=== PATIENT | male | born 1985 | race Caucasian/White ===

== ENCOUNTER 2025-10-29 17:57 | Emergency (ER) | payer MEDICAID ==
[2025-10-29] MEDS ORDERED: Sodium Chloride 0.9% 2.5 ML Syringe FLUSH PRN (18:20)
[2025-10-29] MEDS ORDERED: Sodium Chloride 0.9% 10 ML Syringe FLUSH PRN (18:20)
[2025-10-29 18:37] LABS: BASOPHILS ABSOLUTE AUTO 0.01 K/uL (0.00-0.20); BASOPHILS PERCENT AUTO 0.1 % (0.0-1.0); EOSINOPHILS ABSOLUTE AUTO 0.00 K/uL (0.00-0.45); EOSINOPHILS PERCENT AUTO 0.0 % (0.0-6.0); IMMATURE GRAN ABSOLUTE AUTO 0.04 K/uL (0.00-0.05); IMMATURE GRAN PERCENT AUTO 0.5 % (0.0-0.4); LYMPHOCYTES ABSOLUTE AUTO 0.96 K/uL (1.00-4.80); LYMPHOCYTES PERCENT AUTO 11.7 % (24.0-44.0); MEAN PLATELET VOLUME 10.1 fL (9.4-12.4); MONOCYTES ABSOLUTE AUTO 0.93 K/uL (0.00-0.80); MONOCYTES PERCENT AUTO 11.4 % (0.0-8.0); NEUTROPHILS ABSOLUTE AUTO 6.24 K/uL (1.80-7.70); NEUTROPHILS PERCENT AUTO 76.3 % (41.0-71.0); NRBC ABSOLUTE 0.00 K/uL (0.00-0.02); NRBC PERCENT 0.0 /100WBC (0.0-0.2); PLATELET COUNT,PLT 265 K/uL (150-400); RED BLOOD CELL COUNT 4.36 M/uL (4.52-5.90); WHITE BLOOD CELL COUNT,WBC 8.18 K/uL (3.9-11.3)
[2025-10-29] MEDS: Ketorolac 30 MG/ML SDV IVPUSH ONE (18:39)
[2025-10-29 18:50] LABS: INR 1.07 (0.86-1.11); PTT,PARTIAL THROMBOPLSTIN TIME 27.0 SEC (23.9-30.7)
[2025-10-29 19:07] LABS: A/G RATIO 0.6 (0.9-1.6); ALANINE AMINOTRANSFERASE,ALT 162.0 IU/L (14-63); ASPARTATE AMNIOTRANSFERASE,AST 88.0 IU/L (15-37); BILIRUBIN TOTAL 0.9 mg/dL (0.2-1.0); BLOOD UREA NITROGEN,BUN 13.0 mg/dL (7.0-18.0); CARBON DIOXIDE,CO2 27.2 mmol/L (21.0-32.0); CHLORIDE,CL 96.0 mmol/L (98-107); CREATININE 1.0 mg/dL (0.8-1.3); EST CRCL DRUG DOSING (CG) 102.49 mL/min; ESTIMATED GFR 96.0 mL/min (>60); GLUCOSE RANDOM 142.0 mg/dL (74-106); POTASSIUM,K 4.3 mmol/L (3.5-5.1); PROTEIN TOTAL,TP 7.2 g/dL (6.4-8.2); SODIUM,NA 134.0 mmol/L (136-148)
[2025-10-29 19:09] LABS: LACTIC ACID 1.7 mmol/L (0.4-2.0)
[2025-10-29] MEDS: VANCOmycin 2 GM/400 ML 2 GM in Premix Bag 1 BAG IV ONE (19:21)
[2025-10-29] MEDS: Ondansetron 4 MG/2 ML SDV IVPUSH ONE (19:27)
[2025-10-29] MEDS: Ketorolac 30 MG/ML SDV IVPUSH STA (20:26)
[2025-10-29 20:27] LABS: APPEARANCE,URINE CLEAR; GLUCOSE,URINE NEGATIVE (NEGATIVE); OCCULT BLOOD,URINE NEGATIVE (NEGATIVE)
[2025-10-29] MEDS: Iopamidol 755 MG/ML 500 ML Multipack Bottle IVPUSH ONE (21:26)
[2025-10-29] MEDS ORDERED: Amoxicillin/Clavulanate K 875-125 MG Tab PO ONE (22:20)
== END 2025-10-29 22:42 | disposition home or self-care (01) ==
LOC: MW.ED 17:57
DX: J01.90 Acute sinusitis, unspecified (principal); E86.0 Dehydration; Z79.899 Other long term (current) drug therapy
CPT/HCPCS: 36415; 70450; 70460; 70487; 71250; 80053; 81003; 83605; 83735; 85025; 85610; 85730; 87040; 87086; 87428; 87651; 93005; 96365; 96366; 96367; 96375; 96376; 99284; A9270; J1885; J2405; J2543; J3375; J7030; Q9967; 87077; 87154; 87186; 93010

== ENCOUNTER 2025-11-02 11:04 | Emergency (ER) | payer MEDICAID ==
[2025-11-02] MEDS ORDERED: Sodium Chloride 0.9% 10 ML Syringe FLUSH PRN (11:13)
[2025-11-02] MEDS ORDERED: Sodium Chloride 0.9% 2.5 ML Syringe FLUSH PRN (11:13)
[2025-11-02 13:14] LABS: BASOPHILS ABSOLUTE AUTO 0.01 K/uL (0.00-0.20); BASOPHILS PERCENT AUTO 0.2 % (0.0-1.0); EOSINOPHILS ABSOLUTE AUTO 0.02 K/uL (0.00-0.45); EOSINOPHILS PERCENT AUTO 0.4 % (0.0-6.0); IMMATURE GRAN ABSOLUTE AUTO 0.03 K/uL (0.00-0.05); IMMATURE GRAN PERCENT AUTO 0.6 % (0.0-0.4); LYMPHOCYTES ABSOLUTE AUTO 1.69 K/uL (1.00-4.80); LYMPHOCYTES PERCENT AUTO 32.4 % (24.0-44.0); MEAN PLATELET VOLUME 10.0 fL (9.4-12.4); MONOCYTES ABSOLUTE AUTO 0.59 K/uL (0.00-0.80); MONOCYTES PERCENT AUTO 11.3 % (0.0-8.0); NEUTROPHILS ABSOLUTE AUTO 2.87 K/uL (1.80-7.70); NEUTROPHILS PERCENT AUTO 55.1 % (41.0-71.0); NRBC ABSOLUTE 0.00 K/uL (0.00-0.02); NRBC PERCENT 0.0 /100WBC (0.0-0.2); PLATELET COUNT,PLT 405 K/uL (150-400); RED BLOOD CELL COUNT 3.97 M/uL (4.52-5.90); WHITE BLOOD CELL COUNT,WBC 5.21 K/uL (3.9-11.3)
[2025-11-02 13:26] LABS: INR 0.98 (0.86-1.11); PTT,PARTIAL THROMBOPLSTIN TIME 21.7 SEC (23.9-30.7)
[2025-11-02 13:34] LABS: LACTIC ACID 1.2 mmol/L (0.4-2.0)
[2025-11-02 13:38] LABS: A/G RATIO 0.6 (0.9-1.6); ALANINE AMINOTRANSFERASE,ALT 160.0 IU/L (14-63); ASPARTATE AMNIOTRANSFERASE,AST 104.0 IU/L (15-37); BILIRUBIN TOTAL 0.7 mg/dL (0.2-1.0); BLOOD UREA NITROGEN,BUN 10.0 mg/dL (7.0-18.0); CARBON DIOXIDE,CO2 30.1 mmol/L (21.0-32.0); CHLORIDE,CL 106.0 mmol/L (98-107); CREATINE KINASE,CK 61.0 U/L (26-308); CREATININE 0.7 mg/dL (0.8-1.3); EST CRCL DRUG DOSING (CG) 146.42 mL/min; GLUCOSE RANDOM 90.0 mg/dL (74-106); POTASSIUM,K 4.3 mmol/L (3.5-5.1); PRO B-TYPE NATRIUR PEPT,BNPPRO 60.0 pg/mL (0-125); PROTEIN TOTAL,TP 7.1 g/dL (6.4-8.2); SODIUM,NA 144.0 mmol/L (136-148)
[2025-11-02 13:41] LABS: ESTIMATED GFR 118.0 mL/min (>60)
[2025-11-02 13:56] LABS: CORONAVIRUS COVID-19 NAA NEGATIVE (NEGATIVE); INFLUENZA A NAA NEGATIVE (NEGATIVE); INFLUENZA B NAA NEGATIVE (NEGATIVE)
[2025-11-02] MEDS: Iopamidol 755 MG/ML 500 ML Multipack Bottle IVPUSH STA (15:05)
[2025-11-02] MEDS ORDERED: Naloxone 0.4 MG/ML SDV IVPUSH PRN (15:35)
[2025-11-02] MEDS: fentaNYL 50 MCG/ML SDV IVPUSH ONE (15:37)
[2025-11-02] MEDS: Ondansetron 4 MG/2 ML SDV IVPUSH ONE (15:38)
[2025-11-02 16:28] LABS: APPEARANCE,URINE CLEAR; GLUCOSE,URINE NEGATIVE (NEGATIVE); OCCULT BLOOD,URINE NEGATIVE (NEGATIVE)
== END 2025-11-02 20:18 ==
LOC: MW.ED 11:04
DX: R50.9 Fever, unspecified (principal); Z79.84 Long term (current) use of oral hypoglycemic drugs; Z79.899 Other long term (current) drug therapy
CPT/HCPCS: 36415; 71046; 71275; 80053; 81003; 82550; 83605; 83735; 83880; 85025; 85379; 85610; 85730; 87040; 87086; 87636; 93005; 96365; 99285; J2543; Q9967